=== PATIENT | female | born 1965 | race Caucasian/White ===

== ENCOUNTER → 2017-09-03 | Outpatient (CLI) | payer BC ==
--- NOTE | 2017-09-04 08:31 | WWHP ---
[facility] - HISTORY AND PHYSICAL DATE OF SERVICE: 09/03/2017 CHIEF COMPLAINT: The patient is here for her routine gynecologic exam and mammogram. HPI: This is a 51-year-old, G1, P1 with an LMP of 08/26/2017. Her is status post vasectomy. She states her periods are regular every month and are lasting about 2 to 3 days. She does experience occasional night sweats, but denies any significant hot flashes during the day. She is without gynecologic complaints. PAST MEDICAL HISTORY: Elevated cholesterol and seasonal allergies. MEDICATIONS: 1. Pravastatin 40 mg daily. 2. Co Q10 one daily. 3. Mallory-3 supplement daily. 4. Multivitamin 1 daily. 5. Estroven 1 daily. 6. Calcium with magnesium and zinc 1 daily. 7. Glucosamine with chondroitin daily. ALLERGIES: No known drug allergies. PAST SURGICAL HISTORY: Sinus surgery in 1997. 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 SOCIAL HISTORY: She denies tobacco and drug use and has about 2 alcohol containing drinks per week. 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 Her son is engaged to be in 2018. FAMILY HISTORY: Family history is unchanged from the 2014 H&P. REVIEW OF SYSTEMS: She has gained about 6 pounds over the last 2 years. She denies respiratory, cardiac or GI problems. PHYSICAL EXAM: Blood pressure 121/83, height 5 feet 4 inches, weight 151 pounds. Temperature 97.9, pulse 80. This is a well-developed, well-nourished, white female, who is alert and oriented x3, in no acute distress HEENT is within normal limits. NECK: Supple without mass or thyromegaly. CHEST AND LUNGS: Clear to auscultation. HEART: Regular rate and rhythm. Breasts are without mass or discharge. Axillary exam is negative for adenopathy. BACK: Negative for CVA tenderness. ABDOMEN: Soft, nontender, without palpable masses. PELVIC EXAM: External genitalia reveals mild atrophy without lesions. Cervix and vagina reveals mild atrophy without lesions. The cervix is slightly stenotic secondary to atrophy. There is no evidence of prolapse. The uterus is mid position, nongravid size and nontender. There are no palpable adnexal masses or tenderness. Rectovaginal exam is negative for mass or tenderness and is negative for occult blood. EXTREMITIES: Nontender. IMPRESSION: A 51-year-old premenopausal female with normal gynecologic exam. PLAN: 1. Pap smear was performed. 2. Self breast examination was discussed. 3. Mammogram will be done today. 4. Osteoporosis prevention was discussed. 5. The patient is scheduled for a screening colonoscopy on 09/19/17, and this will be done by Dr. Rachel. 6. She will return in 1 year. MMODL / IJN: [id number] /
--- NOTE | 2017-09-05 08:18 | MM ---
Reason for exam: screening (asymptomatic). Last mammogram was performed 3 years and 7 months ago. History: Family history of breast cancer in maternal grandmother at age 82. Physical Findings: A clinical breast exam by your physician is recommended on an annual basis and results should be correlated with mammographic findings. MG Screening Mammo w CAD Bilateral CC and MLO view(s) were taken. Prior study comparison: February 16, 2014, CAD bilateral diagnostic mammogram. January 30, 2013, [facility] DIGITAL RIGHT MAMMOGRAM w/CAD. The breast tissue is extremely dense which could obscure a lesion on mammography. No suspicious abnormality. No significant changes when compared with prior studies. ASSESSMENT: Negative, BI-RAD 1 RECOMMENDATION: Routine screening mammogram of both breasts in 1 year.
== END | disposition home or self-care (01) ==
LOC: WWCWWP 13:10
PROVIDERS: ATTEND Obstetrics & Gynecology
DX: Z12.31 Encounter for screening mammogram for malignant neoplasm of breast (principal)

== ENCOUNTER → 2018-10-14 | Outpatient (CLI) | payer BC ==
[2018-10-14 14:26] VITALS: BP 104/70; PULSE 68; TEMP 97.5; BMI 25.0
--- NOTE | 2018-10-14 15:09 | P.HPOB ---
History of Present Illness H&P Date: 10/14/18 Chief Complaint: The patient is here for her routine gynecologic exam and mammogram. This is a 52-year-old with an LMP of 09/28/2018. Her 's status post vasectomy. She states her menses have been mostly every month, but she has skipped about two menstrual periods during the past year. She also has had 2 months when she had two menstrual periods during the month, in March and September. During the months she did skip her menstrual period, the following menstrual period tends to be longer and heavier. Most periods are generally heavy during the 1st 2 days and she has to change your protection every 2 hours. She has occasionally soaks through her protection. She denies any significant hot flashes during the day but does have occasional hot flashes at night. Review of Systems The patient has lost 5 pounds over the last year. She denies respiratory, cardiac, or G.I. problems. Past Medical History Past Medical History: No Reported History, Hyperlipidemia Additional Past Medical History / Comment(s): Seasonal allergies. 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 She has had a history of hypermenorrhea. History of Any Multi-Drug Resistant Organisms: None Reported Past Surgical History: No Surgical Hx Reported Additional Past Surgical History / Comment(s): Sinus surgery. 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 - Past Family History Father Family Medical History: Hyperlipidemia Mother Family Medical History: No Reported History Additional Family Medical History / Comment(s): Maternal grandmother had breast cancer in her 80s. Medications and Allergies Home Medications Medication Instructions Recorded Confirmed Type Multivitamin [Multivitamins Adult 1 each PO DAILY 10/14/18 10/14/18 History Gummies] Pravastatin Sodium [Pravachol] 40 mg PO HS 10/14/18 10/14/18 History Ubidecarenone [Co Q-10] 100 mg PO HS 10/14/18 10/14/18 History Allergies Allergy/AdvReac Type Severity Reaction Status Date / Time No Known Allergies Allergy Unverified 10/14/18 14:15 Exam Vital Signs Temp Pulse BP 10/14/18 14:18 97.5 F L 68 104/70 Intake and Output 10/13/18 10/14/18 10/14/18 22:59 06:59 14:59 Other: Weight 66.224 kg Height 5'4", weight 146 pounds, BMI 25.1. This is a well-developed well-nourished white female who is alert and oriented times 3 in no acute distress. HEENT: Within normal limits. NECK: Supple without mass or thyromegaly. CHEST AND LUNGS: Clear to auscultation. HEART: Regular rate and rhythm. BREASTS: Are without mass or discharge. AXILLARY EXAM: Negative for adenopathy. BACK: Negative for CVA tenderness. ABDOMEN: Soft, nontender, without palpable masses. PELVIC EXAM: Normal external genitalia. Cervix and vagina appear normal. There is a clear thin cervical mucus consistent with possible ovulation. There is no unusual discharge. There is no evidence of prolapse. The uterus is midposition , nongravid size and nontender. There are no palpable adnexal masses or tenderness. RECTAL EXAM: rectovaginal exam is negative for mass or tenderness and is negative for occult blood. EXTREMITIES: Nontender. IMPRESSION: 1. 52 year old female whose is status post vasectomy with normal gynecologic exam. 2. Hypermenorrhea with slight menstrual irregularity, possible early perimenopause. PLAN: 1. Pap smear was deferred since she had a normal one last year. 2. Self breast awareness was discussed with the patient. 3. Trial of meclofenamate sodium 100 mg PO TID PRN for heavy menstrual flow up to 6 days per cycle. The electronic prescription will be sent to [facility] pharmacy in [place]. 4. Information on the endometrial ablation was given to the patient. If the meclofenamate sodium is not adequately helping and if she is interested in endometrial ablation, she will call and we will arrange for this. 5. Colonoscopy was recommended last year, but the patient states she did Cologard instead. She will discuss colorectal screening with Dr. Tong. 6. Osteoporosis prevention was discussed. 7. She will keep menstrual calendar. 8. She will return in one year and PRN.
--- NOTE | 2018-10-16 10:46 | MM ---
Reason for exam: screening (asymptomatic). Last mammogram was performed 1 year and 1 month ago. History: Family history of breast cancer in maternal grandmother at age 82. Took hormonal contraceptives for 25 years. MG 3D Screening Mammo W/Cad Bilateral CC and MLO view(s) were taken. Prior study comparison: September 03, 2017, bilateral MG screening mammo w CAD. February 16, 2014, CAD bilateral diagnostic mammogram. The breast tissue is extremely dense which could obscure a lesion on mammography. No significant changes when compared with prior studies. ASSESSMENT: Benign, BI-RAD 2 RECOMMENDATION: Routine screening mammogram of both breasts in 1 year.
== END ==
LOC: WWCWWP 13:49
PROVIDERS: ATTEND Obstetrics & Gynecology
DX: Z12.31 Encounter for screening mammogram for malignant neoplasm of breast (principal)
CPT/HCPCS: 77063; 77067